=== PATIENT | female | born 1950 | race Caucasian/White ===

== ENCOUNTER 2019-01-03 20:22 | Observation (INO) | payer BC ==
[~2019-01-03] VITALS: Ht 170.2 cm; Wt 65.9 kg
--- NOTE | ~2019-01-03 | HEMODYNAMI ---
PATIENT:FOREST CORREA MEDICAL RECORD: [id number] : 54 [id number] ADMISSION DATE: 01/03/19 Generatedon:01/05/201912:42 Patient name: FOREST CORREA Patient #: [id number] SSN: [id number] : 1950 Date of study: 01/05/2019 Page: Of Hemodynamic Procedure Report Patient Data Patient Demographics Procedure consent was obtained First Name: FOREST Gender: Female Last Name: SUNNY : 1950 Patient #: [id number] Age: 68 year(s) Race: SSN: [id number] Additional ID: [id number] Contact details [address]: [address] [place] [address] State: [place] City: [place] Zip code: [address] Past Medical History Allergies: No known allergies Admission Admission Data Admission Date: 01/03/2019 Admission Time: 22:55 Arrival Date: 01/05/2019 Arrival Time: 0:00 Admit Source: Emergency Insurance Payor: Private department health insurance Room #: D.1209 [facility] #: [id number] Height (in.): 67 BSA: 1.76 (m2) Height (cm.): 170.18 BMI: 22.71 (kg/m2) Weight (lbs.): 145 Weight (kg.): 65.77 Lab Results Lab Result Date: 01/05/2019 Lab Result Time: 1:40 Biochemistry Name Units Result Min Max BUN mg/dl 7 --(*---)-- 7 18 Creatinine mg/dl 0.6 --(*---)-- 0.6 1.3 CBC Name Units Result Min Max Hematocrit % 39.9 -*(----)-- 42 54 Hemoglobin g/dl 13.4 -*(----)-- 13.5 17.5 Procedure Procedure Types Cath Procedure Diagnostic Procedure C LHC w/Coronaries Procedure Description Procedure Date Procedure Date: 01/05/2019 Procedure Start Time: 12:33 Procedure End Time: 12:41 Procedure Staff Name Function Agusto Avila MD Performing Physician Дмитрий Zapata RT Monitor Kartik Xavier RT Scrub Josue Saeed RN Nurse Procedure Data Cath Procedure Fluoroscopy Diagnostic fluoroscopy Total fluoroscopy Time: 0.7 time: 0.7 min min Diagnostic fluoroscopy Total fluoroscopy dose: 194 dose: 194 mGy mGy Contrast Material Contrast Material Type Amount (ml) Isovue 300 41 Entry Location Entry Primary Successful Side Size Upsize Upsize Entry Closure Succes sful Closure Location (Fr) 1 (Fr) 2 (Fr) Remarks Device Remarks Femoral Right 5 Fr Exoseal artery Estimated blood loss: 5 ml Diagnostic catheters Device Type Used For End Catheter Placement MULTIPACK Pigtail 5 Fr Procedure catheter MULTIPACK JL 4.0 5Fr Procedure catheter MULTIPACK 3DRC 5Fr Procedure catheter Procedure Complications No complications Procedure Medications Medication Administration Route Dosage 0.9% NaCl I.V. 100 ml/hr Oxygen etCO2 Nasal cannula 2 l/min Heparin Flush Bag added to field 2 bags (1000units/500ml NS) Lidocaine 2% added to field 20 Versed I.V. 2 mg Fentanyl I.V. 100 mcg Hemodynamics Rest BSA: 1.76 (m2) HGB: 13.4 (g/dl) O2 Consumption: Estimated: 170.81 (ml/min) O2 Co nsumption indexed: Estimated:97.05 (ml/min/m) Heart Rate: 80 (bpm) Pressure Samples Time Site Value (mmHg) Purpose Heart Use Rate(bpm) 12:33 LV 154/4,11 Snapshot 79 Snapshots Pre Cath Intra NCS Post Cath Vital Signs Time Heart Resp SPO2 etCO2 NIBP (mmHg) Rhythm Pain Sedation Rate (ipm) (%) (mmHg) Status Level (bpm) 12:22:57 80 15 100 32.9 157/64(101) NSR 0 (11) 10(A) , No pain 12:27:18 79 18 100 37.4 141/66(98) NSR 0 (11) 10(A) , No pain 12:31:36 77 15 99 38.9 136/65(88) NSR 0 (11) 9(A) , No pain 12:35:54 85 16 98 41.1 134/62(93) NSR 0 (11) 9(A) , No pain 12:40:10 80 15 98 39.6 138/64(101) NSR 0 (11) 9(A) , No pain Medications Time Medication Route Dose Verified Delivered Reason Notes Eff ectiveness by by 12:21:06 0.9% NaCl I.V. 100 Josue Josue Per ml/hr Christophe Saeed physician RN RN 12:21:17 Oxygen etCO2 2 Josue Josue for low 02 Nasal l/min Lorigan Lorigan sats cannula RN RN 12:21:29 Heparin Flush added 2 Josue Josue used for Bag to bags Lorigan Lorigan procedure (1000units/500ml field RN RN NS) 12:21:40 Lidocaine 2% added 20ml Josue Josue for local to vial Lorigan Lorigan anesthetic field RN RN 12:30:18 Versed I.V. 2 mg Josue Josue for Lorigan Lorigan sedation RN RN 12:30:27 Fentanyl I.V. 100 Josue Josue for mcg Lorigan Lorigan sedation RN concrete paving machine operator Log Time Note 10:55:29 Informed consent obtained and on chart 10:56:18 Patient allergic to No known allergies 10:56:20 Admit Source: Emergency department 10:56:24 Insurance Payor : Private health insurance 10:56:39 Arrival Date: 01/05/2019 12:00:00 AM 10:56:48 Patient Height : 67 inches 10:56:53 Patient Weight : 145 lbs 10:57:59 Lab Result : BUN 7 mg/dl 10:57:59 Lab Result : Hematocrit 39.9 % 10:57:59 Lab Result : Hemoglobin 13.4 g/dl 10:57:59 Lab Result : Creatinine 0.6 mg/dl 10:58:13 Diagnostic Cath Status : Urgent 10:58:24 ACC Patient presents with No angina; no symptoms CCS Anginal Class 0--No symptoms, no angina. 12:02:27 Procedure Status Urgent Heart Cath (IP). 12:02:29 Josue Saeed RN sent for patient. Start room use. 12:13:52 Time tracking: Regular hours (M-F 7:00 - 5:00) 12:13:58 Plan of Care:Hemodynamics will remain stable., Cardiac rhythm will remain stable., Comfort level will be maintained., Respiratory function will remain adequate., Patient/ family verbilizes understanding of procedure., Procedure tolerated without complication., Recovers from procedure without complications.. 12:14:06 Patient received from Med III to CCL 1 Alert and oriented. Tansferred to table in Supine position. 12:14:25 Warm blankets applied, and juan pablo hugger turned on for patient comfort. 12:14:25 Correct patient and procedure confirmed by team. 12:21:06 0.9% NaCl 100 ml/hr I.V. was administered by Josue Saeed RN; Per physician; 12:21:17 Oxygen 2 l/min etCO2 Nasal cannula was administered by Josue Saeed RN; for low 02 sats; 12:21:29 Heparin Flush Bag (1000units/500ml NS) 2 bags added to field was administered by Josue Saeed RN; used for procedure; 12:21:40 Lidocaine 2% 20ml vial added to field was administered by Josue Saeed RN; for local anesthetic; 12:21:45 Vital chart was started 12:25:01 ECG and BP/O2 sat monitors applied to patient. 12:25:03 Baseline sample Acquired. 12:25:06 Rhythm: sinus rhythm 12:25:08 Full Disclosure recording started 12:25:18 H&P Date Dictated: 01/03/2019 Within 30 days and on chart.. 12:25:20 Pre-procedure instructions explained to patient. 12:25:20 Pre-op teaching completed and patient verbalized understanding. 12:25:22 Family in patients room. 12:25:26 Patient NPO since Midnight. 12:25:28 Is the patient allergic to Iodine/contrast media? No. 12:27:51 ACC The patient was administered the following blood thiners within the last 24 hours: None 12:27:59 Patient diabetic? No. 12:28:02 Previous problem with sedation/anesthesia? No ? 12:28:03 Snore? Yes 12:28:04 Sleep apnea? No 12:28:05 Deviated septum? No 12:28:05 Opens mouth fully? Yes 12:28:06 Sticks out tongue? Yes 12:28:08 Airway obstruction? No ? 12:28:09 Dentures? No ? 12:28:11 Pre procedure: right dorsailis pedis pulse 2+ Normal; easily identifiable; not easily obliterated 12:28:13 Patient pain scale 0/10 ?. 12:28:18 IV patent on arrival in left forearm with 0.9% NaCl at [facility]. 12:28:20 Lab results completed and on chart. 12:28:23 Right groin area was prepped with chlora-prep and draped in sterile fashion 12::23 Alarms reviewed by R. N. 12:28:24 Sharps counted by scrub and verified by R.N. 12:28:26 Use device set Femoral Dx 12:28:27 ACIST Syringe (85560) opened to sterile field. 12:28:27 Bag Decanter (2002S) opened to sterile field. 12:28:28 Medline Cath Pack ([id number]) opened to sterile field. 12:28:29 ACIST Manifold (41815) opened to sterile field. 12:28:29 ACIST Hand Control (32139) opened to sterile field. 12:28:30 DIAGNOSTIC Multipack 5Fr catheter set ([id number]) opened to sterile field. 12:28:30 Tegaderm 4 x 4 (1626W) opened to sterile field. 12:28:31 EMERALD Guide Wire (044-914) opened to sterile field. 12:28:32 SHEATH 5FR [place] (QIN663) opened to sterile field. 12:28:39 Physician arrived 12::39 --------ALL STOP TIME OUT------ 12::39 Final Timeout: patient, procedure, and site verified with staff and physician. All members of the team are in agreement. 12:28:41 Right groin site verified by team. 12:28:44 Fire Safety Assessment: A--An alcohol-based skin anteseptic being used preoperatively., C--Open oxygen or nitrous oxide is being used., D--An ESU, laser, or fiber-optic light is being used. 12:28:47 Physical assessment completed. ASA score P 2 - A patient with mild systemic disease as per Agusto Avila MD. 12:28:59 1) 90+ Normal kidney functon but urine findings or structural abnormalities or genetic trait point to kidney disease. 12:29:02 Maximum allowable contrast dose (3.7 X eGFR X 0.75)250 ml. 12:29:05 Sedation plan: IV Moderate Sedation Medication:Versed, Fentanyl 12:30:06 Zero performed for pressure channel P1 12:30:18 Versed 2 mg I.V. was administered by Josue Saeed RN; for sedation; 12:30:27 Fentanyl 100 mcg I.V. was administered by Josue Saeed RN; for sedation; 12:32:36 Zero performed for pressure channel P1 12:33:10 Procedure started. 12:33:12 Local anesthetic to right femoral artery with Lidocaine 2% by Agusto Avila MD.INITIAL ACCESS ONLY 12:33:19 A 5 Fr sheath was inserted into the Right Femoral artery 12:33:25 A MULTIPACK Pigtail 5 Fr catheter was advanced over the wire and used for Procedure. 12:34:02 LV gram done using WINTER 12:34:04 Injector settings: Ml/sec: 10, Volume: 20, 12:34:06 LV hemodynamics recorded. 12:34:12 EF : 60 % 12:34:18 Catheter exchanged over wire. 12:34:21 A MULTIPACK JL 4.0 5Fr catheter was advanced over the wire and used for Procedure. 12:34:58 LCA angiography performed. 12:35:51 Catheter exchanged over wire. 12:35:55 A MULTIPACK 3DRC 5Fr catheter was advanced over the wire and used for Procedure. 12:36:22 RCA angiography performed. 12:36:25 Catheter exchanged over wire. 12:36:27 EXOSEAL 5Fr (EX500) opened to sterile field. 12:36:43 Sheath removed intact; hemostasis achieved with Exoseal to the Right Femoral artery. 12:36:45 Procedure ended.(Physican Out) 12:39:57 Fluoroscopy time 00.70 minutes. 12:40:01 Fluoroscopy dose: 194 mGy 12:40:01 Flurop Dose total: 194 12:40:15 Dose Area Product 8359 mGy/cm. 12:40:19 Contrast amount:Isovue 300 41ml. 12:40:22 Maximum allowable dose exceeded? No. 12:40:24 Sharps counted by scrub and verified by R.N. 12:40:30 Insertion/operative site no bleeding no hematoma. 12:40:32 Post-op/insertion site Right Femoral artery dressed using a 4 x 4 and Tegaderm. 12:40:37 Post right femoral artery:stable, soft, clean and dry 12:40:38 Post Procedure Pulses reassessed and unchanged 12:40:40 Post-procedure physical assessment completed. ASA score P 2 - A patient with mild systemic disease as per Agusto Avila MD. 12:40:43 Post procedure rhythm: unchanged. 12:40:46 Estimated blood loss: 5 ml 12:40:55 Post procedure instruction explained to patient.Patient verbalizes understanding. 12:40:55 Patient needs reinforcement of post procedure teaching. 12:41:24 Procedure and supply charges have been captured, reviewed, submitted and are correct. 12:41:26 Procedure Complication : No complications 12:41:28 Vital chart was stopped 12:41:29 See physician's report for complete and final results. 12:41:30 Report given to Pre/Post Procedure Room. 12:41:33 Patient transfered to Pre/Post Procedure Room with Stretcher. 12:41:36 Procedure ended. 12:41:36 Full Disclosure recording stopped 12:41:39 End room use (Document Last) 12:41:39 End room use (Document Last) Device Usage Item Name Manufacture Quantity Catalog Hospital Part Current Minimal L ot# / Number Charge Number Stock Stock Serial# Code ACIST Acist 1 97763 [id number] 387085 150996 20 Syringe Medical (91348) Systems Inc Bag Microtek 1 2001S 678679 54499 426487 5 Decanter Medical Inc. (2001S) Medline Medline 1 [id number] 075094 45445 408365 5 Cath Pack ([id number]) ACIST Acist 1 36695 224342 642627 679178 5 Manifold Medical (50704) Systems Inc ACIST Hand Acist 1 27243 066498 519646 226223 5 Control Medical (56732) Systems Inc DIAGNOSTIC Cardinal 1 ER6872 329655 18742 128709 30 Multipack Pliant Technology 5Fr catheter set (YO9545) Tegaderm 4 3M 1 1626W 528270 048216 164298 5 x 4 (1626W) EMERALD Cardinal 1 502-455 722549 971802 028761 5 Guide Wire Health (502-455) SHEATH 5FR Terumo 1 LDY206 512114 097128 205462 5 [place] (TAJ699) MULTIPACK Cardinal 1 998086 5 Pigtail 5 Health Fr catheter MULTIPACK Cardinal 1 928897 5 JL 4.0 5Fr Health catheter MULTIPACK Cardinal 1 356655 5 3DRC 5Fr Health catheter EXOSEAL 5Fr Cardinal 1 EX500 840046 331573 725216 10 (EX500) Health Signature Audit [place] Stage Time Signature Unsigned Intra-Procedure 01/05/2019 Дмитрий Zapata 12:42:14 PM RT(R) Signatures Performing Physician : Signature : Agusto Avila MD Date : Time : Monitor : Дмитрий Zapata RT Signature : Date : Time : Nurse : Josue Saeed Signature : RN Date : Time : [place] [address] [place] [address]
--- NOTE | ~2019-01-03 | OP ---
PATIENT NAME: FOREST CORREA MEDICAL RECORD: [id number] :54 LOCATION:[facility] ADMISSION DATE:01/03/19 SURGEON: MARY SOLIS MD DATE OF OPERATION: 01/05/2019 PROCEDURES: 1. Left heart catheterization. 2. Selective coronary angiography. 3. Left ventriculogram. INDICATION: Non-Q-wave myocardial infarction. PROCEDURE IN DETAIL: After informed consent was obtained and after a detailed description of risks, benefits as well as alternative therapies, the patient elected to proceed with angiogram and heart catheterization. The right radial area was prepped and draped in a normal sterile fashion. Right radial artery was cannulated via modified Seldinger technique with placement of 5-Azerbaijani sheath. All catheters exchanged through this sheath. FINDINGS: The left ventriculogram was performed in standard 30-degree WINTER view, reveals good cardiac wall motion throughout all segments. Overall ejection fraction estimated at 60%. SELECTIVE CORONARY ANGIOGRAPHY: Left main, left anterior descending, left circumflex, right coronary artery are all smooth-walled vessels with no angiographic evidence of coronary artery disease. OVERALL IMPRESSION: 1. No angiographic evidence of coronary artery disease. 2. Normal left heart pressures. 3. Normal left ventricular systolic function. Her chest pain and non-Q-wave myocardial infarction was secondary to the emotional stress of losing her . She has no fixed obstructive coronary artery disease. TRANSINT:[id number] Voice Confirmation ID: [id number] DOCUMENT ID: [id number] MARY SOLIS MD CC: [id number] DICTATION DATE: 01/05/19 1241 ENVIRONMENTAL MANAGER: 01/05/19 1255 [place] [address]
--- NOTE | ~2019-01-03 | DS ---
PATIENT:FOREST CORREA :54 MEDICAL RECORD: [id number] DISCHARGE SUMMARY ADMISSION DATE: 01/03/19 DISCHARGE DATE: 01/05/19 DIAGNOSIS: Non-Q-wave myocardial infarction. HOSPITAL COURSE: Ms. Correa had the emotional stress of losing her . She presents with chest pain and had elevated troponin compatible with non-Q-wave myocardial infarction; however, cardiac catheterization revealed no significant coronary artery disease. She was discharged home with aspirin and metoprolol. Will follow up with [facility] only if she has recurrent chest pain. TRANSINT:[id number] Voice Confirmation ID: [id number] DOCUMENT ID: [id number] MARY SOLIS MD CC: [id number] DICTATION DATE: 01/05/19 1240 DYNAMOMETER TESTER ENGINE: 01/06/19 0028 DIS IN 01/05/19 [facility] [address] [place] [address]
[2019-01-03] MEDS ORDERED: THYROID MED (20:32)
[2019-01-03 21:06] LABS: BASOPHILS 0.4 % (0-2); HEMATOCRIT 39.9 % (36.0-48.0); HEMOGLOBIN 13.4 g/dL (12-16); IMMATURE GRANULOCYTES 0.5 % (0-5); MCHC 33.6 g/dL (31.0-37.0); MCV 92.4 fL (80.0-100.0); MONOCYTES 10.3 % (2-11); NEUTROPHILS 56.8 % (40-80); PLATELET COUNT 247 10x3/uL (130-400); RBC 4.32 10x6/uL (4.00-5.40); RDW 12.6 % (11.5-14.5); WBC 7.7 10x3/uL (4.8-10.8)
[2019-01-03 21:15] LABS: APTT 24.8 SECONDS (22.8-39.4); INR 1.03 (0.85-1.17)
[2019-01-03 21:25] LABS: ALBUMIN 3.8 g/dL (3.4-5.0); ALKALINE PHOSPHATASE 54 U/L (46-116); ALT (SGPT) 25 U/L (10-68); BILIRUBIN - TOTAL 0.18 mg/dL (0.2-1.3); CALC OSMOLALITY 285 mosm/kg (275-300); CALCIUM 8.8 mg/dL (8.5-10.1); CARBON DIOXIDE 25.6 mmol/L (21.0-32.0); CHLORIDE - SERUM 107 mmol/L (98-107); CREATININE - SERUM 0.6 mg/dL (0.6-1.3); GLUCOSE 84 mg/dL (74-106); POTASSIUM - SERUM 3.8 mmol/L (3.5-5.1); PROTEIN - SERUM 6.9 g/dL (6.4-8.2); SODIUM 145 mmol/L (136-145); UREA NITROGEN 7 mg/dL (7-18); eGFR NON AFRICAN AMERICAN > 90 mL/min (90-120)
--- NOTE | 2019-01-03 21:41 | NUR ---
PT LAYING IN BED RESPIRATIONS ARE EVEN AND UNLABORED. NO DISTRESS NOTED. FAMILY MEMBER AT BEDSIDE. WILL CONTINUE TO MONITOR.
[2019-01-03 21:42] LABS: CREATINE KINASE 49 UL (21-215)
[2019-01-03 21:49] LABS: TROPONIN-I 0.125 ng/mL (0.000-0.060)
--- NOTE | 2019-01-04 00:11 | NUR ---
edp tauth at bedside at this time.
--- NOTE | 2019-01-04 00:11 | NUR ---
dr. fabian at bedside at this time.
--- NOTE | 2019-01-04 00:20 | NUR ---
RECEIVED PT FROM ED. A/O X4. DENIES ANY PAIN OR NEEDS AT THIS TIME. WILL CONTINUE TO MONITOR.
[2019-01-04 00:24] VITALS: BP 146/69; Ht 170.2 cm; Wt 65.9 kg
[2019-01-04 01:58] LABS: APPEARANCE CLEAR (CLEAR); BILIRUBIN NEGATIVE (NEGATIVE); COLOR YELLOW (YELLOW); GLUCOSE NEGATIVE (NEGATIVE); KETONE MODERATE mg/dL (NEGATIVE); NITRITE NEGATIVE (NEGATIVE); PROTEIN NEGATIVE (NEGATIVE); UROBILINOGEN NORMAL (NORMAL)
[2019-01-04 02:04] LABS: UDS - AMPHET NEGATIVE QUAL (NEGATIVE); UDS - BARB NEGATIVE QUAL (NEGATIVE); UDS - BENZO NEGATIVE QUAL (NEGATIVE); UDS - COCAINE NEGATIVE QUAL (NEGATIVE); UDS - OPIATE NEGATIVE QUAL (NEGATIVE); UDS - PCP NEGATIVE QUAL (NEGATIVE); UDS - THC NEGATIVE QUAL (NEGATIVE)
[2019-01-04 04:31] VITALS: BP 130/72
[2019-01-04] MEDS ORDERED: ARMOUR THYROID30 MG PO (06:27)
[2019-01-04] MEDS ORDERED: LEVOXYL100 MCG PO (06:27)
[2019-01-04] MEDS ORDERED: KLONOPIN1 MG PO (06:31)
--- NOTE | 2019-01-04 07:30 | NUR ---
AM ROUNDS- INTRODUCED SELF TO PT HER NURSE FOR TODAY AND WROTE NAME ON WHITE BOARD. PT A/O X4, RESP EVEN AND NONLABORED ON RA. LT HAND IV SL. SCDS ON BILAT. VITAL SIGNS STABLE, PT DENIES ANY NEEDS AT THIS TIME. CALL LIGHT IN REACH, NAD NOTED, WILL CONTINUE PLAN OF CARE.
[2019-01-04 07:37] VITALS: BP 147/66
--- NOTE | 2019-01-04 15:00 | NUR ---
PT NOT HAVING HEART CATH DAY, WILL HAVE DIETARY CALL HER ROOM AND BRING HER A LUNCH TRAY. PT RESTING COMFORTABLY IN BED, DENIES ANY NEEDS AT THIS TIME. CALL LIGHT IN REACH, FAMILY AT BEDSIDE, NAD NOTED, WILL CONTINUE TO MONITOR.
--- NOTE | 2019-01-04 19:20 | NUR ---
EVENING ROUNDS COMPLETE. PT SITTING UP ON SIDE OF BED, VSS, NO SIGNS OF DISTRESS. NO C/O PAIN AT THIS TIME. TEACHING ON NPO STATUS AFTER MIDNIGHT. PT UNDERSTANDS. NO FURTHER NEEDS VOICED AT THIS TIME. WILL CONT WITH POC.
[2019-01-04 20:07] VITALS: BP 151/67
[2019-01-05 01:01] VITALS: BP 129/60
[2019-01-05 05:23] VITALS: BP 144/66
--- NOTE | 2019-01-05 07:43 | NUR ---
PT SITTING UP IN BED AWAKE, ALERT, AND ORIENTED. RR EVEN AND UNLABORED. REQUESTED AND RECIEVED FRESH GOWN. FAMILY @ BEDSIDE. DENIES PAIN OR DISCOMFORT AT THIS TIME. WILL CONTINUE TO MONITOR.
[2019-01-05 08:41] VITALS: BP 140/72
--- NOTE | 2019-01-05 09:53 | HP ---
PATIENT: FOREST CORREA MEDICAL RECORD: [id number] ACCOUNT: [id number] LOCATION:[address] : 54 ADMISSION DATE: 01/03/19 PCP: No PCP HISTORY AND PHYSICAL EXAMINATION DIAGNOSES: 1. Elevated troponin, non-Q-wave myocardial infarction. 2. Chest discomfort. 3. Syncope. HISTORY OF PRESENT ILLNESS: Mrs. Correa is going through emotional trauma at this time. She lost her of 20 years yesterday. She has been having episodes of chest discomfort today. She had an episode where she was with her family. They say that she went pale and became unresponsive. They did CPR for approximately 2-3 minutes. She came back. EMS was called. She has had no dysrhythmias since then; however, her troponin is positive. Her EKG is with no acute ST-T changes. She is asymptomatic at this point. She has no history of ischemic heart disease. PHYSICAL EXAMINATION: GENERAL APPEARANCE: Well-nourished, well-developed, appears stated age. Level of distress, comfortable. PSYCHIATRIC: Mental status, alert, normal affect. Orientation, oriented to time, place and person. EYES: Lids and conjunctiva, noninjected. No discharge, no pallor. ENT: Lips, teeth, gums, normal dentition. Oropharynx, no cyanosis, no pallor. NECK: Carotid arteries, bilateral normal upstroke, no bruits, no thrills. JUGULAR VEINS: No jugular venous pressure or distention. CERVICAL LYMPH NODES: Nontender, nonenlarged. THYROID: Not enlarged. Nontender. No nodules. LUNGS: Respiratory effort, unlabored. CHEST: Normal curvature. No thoracic deformity. No chest wall tenderness. Percussion, resonant. Auscultation, clear. No wheezes, no rales, no rhonchi. CARDIOVASCULAR: Precordial exam, nondisplaced. No heaves or pericardial thrills. Rate and rhythm, regular. Heart sounds, normal S1, normal S2. No S3, no gallop, no rub. Systolic murmur, not heard. Diastolic murmur, not heard. EXTREMITIES: No cyanosis, no edema. Peripheral pulses, full and equal in all extremities, except as noted. No bruits appreciated. ABDOMEN: Soft, nondistended. Normal aorta. No bruit. Nontender. No masses. Liver, nontender, no hepatomegaly. Spleen, nontender, no splenomegaly. MUSCULOSKELETAL: No joint tenderness. No joint swelling. No erythema. NEUROLOGICAL: Normal gait, normal strength, normal tone. SKIN: Warm and dry. OVERALL IMPRESSION: Elevated troponin, non-Q-wave myocardial infarction in conjunction with an episode of syncope that required CPR. At this time, we will proceed with coronary angiography. Further care depends upon the findings of the angiography. TRANSINT:[id number] Voice Confirmation ID: [id number] DOCUMENT ID: [id number] HISTORY AND PHYSICAL [id number] FOREST CORREA, MARY BROWN at 0953 CC: [id number] DICTATION DATE: 01/04/19 0018 EXCELSIOR MACHINE FEEDER: 01/04/19 0045 ADM IN [facility] [address] [place] [address]
--- NOTE | 2019-01-05 12:52 | NUR ---
PT ARRIVED BY STRETCHER. PLACED ON MONITORS. ASSESSMENT COMPLETED. VSS. RIGHT GROIN DRESSING C/D/I. NO S/S OF HEMATOMA NOTED. CALL LIGHT WITHIN REACH.
--- NOTE | 2019-01-05 13:15 | NUR ---
RIGHT GROIN DRESSING C/D/I. NO S/S OF HEMATOMA NOTED. VSS. FAMILY AT BEDSIDE. CALL LIGHT WITHIN REACH.
[2019-01-05] MEDS ORDERED: TOPROL XL25 MG PO (13:22)
--- NOTE | 2019-01-05 13:45 | NUR ---
RIGHT GROIN DRESSING C/D/I. NO S/S OF HEMATOMA NOTED. VSS. FAMILY AT BEDSIDE. CALL LIGHT WITHIN REACH.
--- NOTE | 2019-01-05 14:00 | NUR ---
RIGHT GROIN DRESSING C/D/I. NO S/S OF HEMATOMA NOTED. HEAD OF BED INC TO 30 DEGREES. PT SET UP WITH SANDWICH TRAY AND DRINK. DENIES NAUSEA. VSS.
--- NOTE | 2019-01-05 14:30 | NUR ---
RIGHT GROIN DRESSING C/D/I. NO S/S OF HEMATOMA NOTED. PIV D/C'D WITH CATH TIP INTACT. PT TOLERATED WELL. FAMILY AT BEDSIDE. PT INSTRUCTED TO GET UP AND DRESSED. CALL LIGHT WITHIN REACH.
--- NOTE | 2019-01-05 14:40 | NUR ---
PT AMBULATED TO RESTROOM. VOIDED WITHOUT DIFFICULTY. RIGHT GROIN DRESSING C/D/I.
--- NOTE | 2019-01-05 14:45 | NUR ---
DISCUSSED DISCHARGE INSTRUCTIONS WITH PT AND PT'S FAMILY. THEY VOICED UNDERSTANDING.
--- NOTE | 2019-01-05 15:00 | NUR ---
PT TAKEN OUT TO VEHICLE BY WHEELCHAIR. NO S/S OF DISTRESS NOTED. ALL BELONGINGS AND PAPERWORK IN HAND.
== END 2019-01-05 15:00 | disposition home or self-care (01) ==
LOC: D.ER 20:22 → OBSVTIME 22:55 → D.M3 22:55 → D.CLR 01-05 12:50
PROVIDERS: Emergency Medicine; ADMIT Internal Medicine Interventional Cardiology; ATTEND Internal Medicine Interventional Cardiology
DX: I21.4 Non-ST elevation (NSTEMI) myocardial infarction (principal); R55 Syncope and collapse; F10.129 Alcohol abuse with intoxication, unspecified